=== PATIENT | female | born 1995 | race Caucasian/White ===

== ENCOUNTER 2021-03-05 12:31 | Emergency (ER) | payer MEDICAID, OTHER ==
[~2021-03-05] VITALS: Ht 165.1 cm; Wt 127.5 kg
[2021-03-05 13:08] VITALS: BP 281/6
[2021-03-05] MEDS ORDERED: ALPR0.5T2 PO (13:13)
== END 2021-03-05 13:25 | disposition home or self-care (01) ==
LOC: MED 12:31
DX: F41.9 Anxiety disorder, unspecified (principal)
CPT/HCPCS: 99283

== ENCOUNTER 2022-10-20 20:12 | Emergency (ER) | payer OTHER ==
[~2022-10-20] VITALS: Ht 165.1 cm; Wt 108.5 kg
[~2022-10-20 20:12] MED LIST: ALPR0.5T2 PO
[2022-10-20 21:15] VITALS: BP 135/79; PULSE 89; RESP 17; TEMP 98; O2SAT 98
[2022-10-20 22:57] LABS: APPEARANCE,URINE CLEAR (CLEAR); BILIRUBIN,URINE NEGATIVE (NEGATIVE); BLOOD, URINE NEGATIVE (NEGATIVE); COLOR,URINE YELLOW (YELLOW); LEUKOCYTE ESTERASE ,URINE TRACE (NEGATIVE); NITRITE, URINE NEGATIVE (NEGATIVE); PROTEIN,URINE NEGATIVE (NEGATIVE); UGLUCOSE NEGATIVE (NEGATIVE)
[2022-10-20 23:05] LABS: BACTERIA,URINE >30 (MANY) /HPF (None Seen); RBC,URINE 0-5 /HPF (0-5); WBC,URINE 20-60 /HPF (0-5)
[2022-10-20 23:06] LABS: MUCUS,URINE 2+ /LPF (None Seen); SQUAMOUS EPITHELIAL CELL,UR 0-3 (FEW) /LPF (0-3 (FEW))
[2022-10-21] MEDS ORDERED: KETOROLAC 30 MG/ML VIAL IM ONE (00:10)
[2022-10-21] MEDS ORDERED: DIPH25TA53 PO (00:13)
[2022-10-21] MEDS ORDERED: ACET-10509 PO (00:13)
[2022-10-21] MEDS ORDERED: SULF-58 PO (00:13)
[2022-10-21 00:35] LABS: AMPHETAMINE, URINE POSITIVE ng/ml (NEG <=1000); BARBITURATE, URINE NEGATIVE ng/ml (NEG <=200); BENZODIAZEPINE, URINE NEGATIVE ng/mL (NEG <=200); CANNABINOID, URINE NEGATIVE ng/mL (NEG <=50); COCAINE, URINE NEGATIVE ng/mL (NEG <=300); OPIATE, URINE NEGATIVE ng/mL (NEG <=2000); PHENCYCLIDINE SCREEN,URINE NEGATIVE ng/mL (NEG <=25)
[2022-10-21 01:03] VITALS: BP 132/79; PULSE 83; RESP 17; TEMP 98.1; O2SAT 98
== END 2022-10-21 01:03 | disposition home or self-care (01) ==
LOC: MED 20:12
DX: S01.83XA Puncture wound without foreign body of other part of head, initial encounter (principal); N39.0 Urinary tract infection, site not specified; M54.50 Low back pain, unspecified; Z79.899 Other long term (current) drug therapy; W57.XXXA Bitten or stung by nonvenomous insect and other nonvenomous arthropods, initial encounter; Y93.89 Activity, other specified; Y92.89 Other specified places as the place of occurrence of the external cause; Y99.8 Other external cause status
CPT/HCPCS: 80305; 81001; 81025; 87086; 96372; 99283; J1885; Q0163